=== PATIENT | male | born 1940 | race Caucasian/White ===

== ENCOUNTER → 2018-10-17 | Outpatient (CLI) | payer MEDICARE ==
[~2018-10-17] MED LIST: BAYER CHEWABLE81 MG PO; BENICAR20 MG PO; CARVEDILOL12.5 MG PO; COZAAR 25MG TAB25 M1 PO; CRESTOR20 MG PO; ISOSORBIDE DINI30 MG PO; LOSARTAN-HCTZ1 EAC2 PO; MINIPRIN81 MG PO; MUCINEX600 MG PO; NITROGLYCERIN0.4 MG SUBLING; POTASSIUM20 PO; PREDNISOLONE 5 M5 M1 PO; PREDNISONE 10 M10 M1 PO; PROTONIX40 M2 PO; VITAMIN D1000 UNI1 PO; ZPAK PO
== END ==
LOC: M.ULTRA 12:55
DX: I70.293 Other atherosclerosis of native arteries of extremities, bilateral legs (principal)

== ENCOUNTER 2019-02-28 18:20 | Inpatient (IN) | payer MEDICARE ==
[~2019-02-28] VITALS: Ht 180.3 cm; Wt 93.0 kg
[~2019-02-28 18:20] MED LIST changes: -CARVEDILOL12.5 MG PO; +COREG25 MG PO
[2019-02-28 18:27] VITALS: BP 112/43
[2019-02-28 18:59] LABS: ABSOLUTE LYMPHOCYTES 0.8 thou/uL (0.8-5.3); ABSOLUTE MONOCYTES 0.6 thou/uL (0.0-1.2); ABSOLUTE NEUTROPHILS 5.4 thou/uL (1.6-8.1); BASOPHILS 0.5 %; EOSINOPHILS 0.7 %; HEMATOCRIT 33.8 % (42.0-52.0); HEMOGLOBIN 10.8 gm/dL (14.0-18.0); LYMPHOCYTES 11.6 %; MCHC 31.9 g/dL (28.0-37.0); MCV 90.9 fL (80.0-100.0); MPV 9.4 fl. (7.2-11.1); NUCLEATED RBCS 0 /100WBC; PLATELET COUNT* 400 thou/uL (150-400); POLYS 79.2 %; RBC 3.72 mil/uL (4.50-6.00); RDW-CV 14.7 % (10.5-14.5); WBC 6.9 thou/uL (4.0-11.0)
[2019-02-28 19:07] LABS: ANION GAP 6 mmol/L (7-16); BUN 45 mg/dL (7-18); CHLORIDE 110 mmol/L (98-107); CO2 29 mmol/L (21-32); GLUCOSE 124 mg/dL (70-99); POTASSIUM 4.7 mmol/L (3.5-5.1); SODIUM 145 mmol/L (136-145)
[2019-02-28 19:18] LABS: ALBUMIN 1.9 g/dL (3.4-5.0); ALKALINE PHOSPHATASE 171 U/L (46-116); LIPASE 594 U/L (73-393); NT-PRO BRAIN NAT PEPTIDE 411 pg/mL (<300); SGOT 60 U/L (15-37); SGPT 110 U/L (30-65); TOTAL BILIRUBIN 0.3 mg/dL (<0.1-1.0); TOTAL PROTEIN 7.2 g/dL (6.4-8.2); TROPONIN-I LEVEL <0.06 ng/mL (<0.06)
[2019-03-01] VITALS (7 sets, daily range): BP systolic 117–139; BP diastolic 49–63
--- NOTE | 2019-03-01 09:43 | EKG ---
[place] [address] ELECTROCARDIOGRAM REPORT Name: PAYTON CHIRINOS Room: [place] [address] ADM IN [facility].#: [id number] Admission: 02/28/19 Attend Phys: Treasure Fields MD Discharge: Date of : 40 Report #: [id number] THIS REPORT FOR: //name// 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
[2019-03-01 11:42] LABS: CREATININE 1.9 mg/dL (0.6-1.3); MAGNESIUM 2.4 mg/dL (1.8-2.4); POTASSIUM 5.1 mmol/L (3.5-5.1)
[2019-03-02 02:05] LABS: HEPATITIS B SURFACE AG Negative (Negative)
[2019-03-02 04:12] LABS: HEMATOCRIT 32.6 % (42.0-52.0); HEMOGLOBIN 9.9 gm/dL (14.0-18.0); MCH 28.6 pg (26.0-34.0); MCHC 30.4 g/dL (28.0-37.0); MCV 94.1 fL (80.0-100.0); MPV 9.9 fl. (7.2-11.1); RBC 3.46 mil/uL (4.50-6.00); RDW-CV 15.5 % (10.5-14.5); WBC 6.9 thou/uL (4.0-11.0)
[2019-03-02 04:32] LABS: CALCIUM 8.1 mg/dL (8.5-10.1); CREATININE 1.8 mg/dL (0.6-1.3); MAGNESIUM 2.3 mg/dL (1.8-2.4)
[2019-03-02 04:54] LABS: POTASSIUM 6.3 mmol/L (3.5-5.1)
[2019-03-02 07:30] VITALS: BP 129/57
[2019-03-02 11:40] VITALS: BP 126/54
[2019-03-02 12:18] LABS: CALCIUM 8.3 mg/dL (8.5-10.1); CREATININE 1.8 mg/dL (0.6-1.3)
[2019-03-02 12:19] LABS: POTASSIUM 5.3 mmol/L (3.5-5.1)
[2019-03-02 16:19] VITALS: BP 110/51
[2019-03-02 20:00] VITALS: BP 117/49
[2019-03-03] VITALS: BP 115/47
[2019-03-03 04:00] VITALS: BP 121/60
[2019-03-03 05:07] LABS: HEMATOCRIT 29.2 % (42.0-52.0); MCH 28.4 pg (26.0-34.0); MCHC 30.8 g/dL (28.0-37.0); MCV 92.3 fL (80.0-100.0); MPV 9.7 fl. (7.2-11.1); RBC 3.16 mil/uL (4.50-6.00); RDW-CV 14.9 % (10.5-14.5)
[2019-03-03 05:26] LABS: CALCIUM 7.7 mg/dL (8.5-10.1); CREATININE 1.8 mg/dL (0.6-1.3); MAGNESIUM 2.1 mg/dL (1.8-2.4)
[2019-03-03 07:15] LABS: URINE BILIRUBIN NEGATIVE (Negative); URINE BLOOD NEGATIVE (Negative); URINE CLARITY CLEAR; URINE COLOR YELLOW; URINE GLUCOSE-RANDOM NEGATIVE (Negative); URINE KETONES NEGATIVE (Negative); URINE LEUKOCYTES-REFLEX NEGATIVE (Negative); URINE NITRITE-REFLEX NEGATIVE (Negative); URINE PROTEIN TRACE (Negative); URINE SPECIFIC GRAVITY 1.025 (1.005-1.030); URINE UROBILINOGEN 0.2 E.U./dl (0.2-1.0)
[2019-03-03 07:20] LABS: AMP/METHAMP Negative (Negative); BARBITURATES Negative (Negative); BENZODIAZEPINES Negative (Negative); COCAINE Negative (Negative); METHADONE Negative (Negative); OPIATES Negative (Negative); PCP Negative (Negative); THC Negative (Negative)
[2019-03-03 08:00] VITALS: BP 128/55
[2019-03-03 16:00] VITALS: BP 96/49
[2019-03-04 04:00] VITALS: BP 174/57
[2019-03-04 04:43] LABS: CALCIUM 8.2 mg/dL (8.5-10.1); CREATININE 2.1 mg/dL (0.6-1.3); MAGNESIUM 1.9 mg/dL (1.8-2.4)
[2019-03-04 08:00] VITALS: BP 111/53
[2019-03-04] MEDS ORDERED: MUCINEX600 MG PO (10:00)
[2019-03-04] MEDS ORDERED: ADVAIR HFA 230M12 GM INH (10:00)
[2019-03-04] MEDS ORDERED: ASPIR 8181 MG PO (10:00)
[2019-03-04] MEDS ORDERED: VENTOLIN HFA 1818 GM INH (10:00)
[2019-03-04] MEDS ORDERED: PREDNISONE 10 M10 MG PO (10:00)
[2019-03-04] MEDS ORDERED: ERGOCALCIF50000 UNIT PO (10:05)
[2019-03-04] MEDS ORDERED: CALCIUM 600 +1 EAC1 PO (10:05)
[2019-03-04 11:35] VITALS: BP 111/53
[2019-03-04 13:18] VITALS: BP 111/53
--- NOTE | 2019-03-04 14:40 | EKG ---
[place] [address] ELECTROCARDIOGRAM REPORT Name: PAYTON CHIRINOS Room: [address] ADM IN M.R.#: [id number] Admission: 02/28/19 Attend Phys: Treasure Fields MD Discharge: Date of : 40 Report #: [id number] THIS REPORT FOR: //name// [facility] Test Date: 2019-03-02 Test Time: 08:18:53 Pat Name: PAYTON CHIRINOS Department: Room: [facility] Gender: M Training Development Manager: : 1940 Requested By: Jona Hinds Order Number: [id number] MD: Martin Mcgovern Measurements Intervals [place] Rate: 78 P: 68 [place]: 180 QRS: 37 QRSD: 75 T: 50 QT: 362 QTc: 413 Interpretive Statements Sinus rhythm Anteroseptal infarct, age indeterminate Baseline wander in lead(s) V3 Compared to ECG 02/28/2019 18:41:17 No significant changes Electronically Signed On 03-04-2019 14:40:47 CDT by Martin Mcgovern [email or web address] <ELECTRONICALLY SIGNED> By: Martin Mcgovern MD, [facility] 03/04/19 1440 7 7 Martin Mcgovern MD, [facility] /EPI
== END 2019-03-04 14:51 | disposition home health service (06) | DRG 190 ==
LOC: M.ERS 18:20 → M.ORTHSURG 21:43 → M.TBA-ER 21:43 → M.ORTHSURG 03-01 12:51 → M.2W 03-02 11:29
PROVIDERS: Internal Medicine; Nurse Practitioner Family; ADMIT Internal Medicine
DX: J44.1 Chronic obstructive pulmonary disease with (acute) exacerbation (principal); E43 Unspecified severe protein-calorie malnutrition; I27.20 Pulmonary hypertension, unspecified; I25.10 Atherosclerotic heart disease of native coronary artery without angina pectoris; N18.3 Chronic kidney disease, stage 3 (moderate); I12.9 Hypertensive chronic kidney disease with stage 1 through stage 4 chronic kidney disease, or unspecified chronic kidney disease; M62.84 Sarcopenia; E78.5 Hyperlipidemia, unspecified; K80.20 Calculus of gallbladder without cholecystitis without obstruction; E87.5 Hyperkalemia; D63.8 Anemia in other chronic diseases classified elsewhere; E11.51 Type 2 diabetes mellitus with diabetic peripheral angiopathy without gangrene; E55.9 Vitamin D deficiency, unspecified; E07.89 Other specified disorders of thyroid; E11.22 Type 2 diabetes mellitus with diabetic chronic kidney disease; I25.2 Old myocardial infarction; Z87.891 Personal history of nicotine dependence; Z68.28 Body mass index [BMI] 28.0-28.9, adult; Z90.12 Acquired absence of left breast and nipple; Z90.49 Acquired absence of other specified parts of digestive tract; Z79.82 Long term (current) use of aspirin; Z79.899 Other long term (current) drug therapy; Z88.8 Allergy status to other drugs, medicaments and biological substances; Z83.3 Family history of diabetes mellitus

== ENCOUNTER 2019-03-08 12:07 | Inpatient (IN) | payer MEDICARE ==
[~2019-03-08] VITALS: Ht 180.3 cm; Wt 93.0 kg
--- NOTE | ~2019-03-08 | CON ---
[address] [address] CONSULTATION Name: PAYTON CHIRINOS Room: [address] IN .R.#: [id number] Admission: 03/08/19 Attend Phys: Jono Mcdowell MD Discharge: Date of : 40 Report #: [id number] THIS REPORT FOR: //name// CC: Jono Bullmoneyo Silva DATE OF SERVICE: 03/09/2019 REASON FOR CONSULTATION: Anemia. HISTORY OF PRESENT ILLNESS: This is a 78-year-old male with history of upper and lower endoscopy and blood transfusions 10 years ago. The patient also has had a capsule endoscopy at that time, but does not recall the result of it. He was admitted to hospital with respiratory failure and pneumonia. He is currently being treated for the same. The patient has a diagnosis of COPD and CHF for which he usually gets treated. He does not use home oxygen. Since hospitalization, he was found to have a low hemoglobin of 9. We were consulted to further evaluate his anemia. He denies any hematochezia or melena. Reports occasional gastroesophageal reflux symptoms. PAST MEDICAL HISTORY: Significant for history of COPD, peripheral vascular disease, CHF, anemia. ALLERGIES: No known drug allergy. MEDICATIONS: Please refer to MAR. SOCIAL HISTORY: The patient used to smoke, but denies tobaccoism. He also denies any alcohol use. He lives at home with his . FAMILY HISTORY: Significant for history of diabetes. PHYSICAL EXAMINATION: VITAL SIGNS: Reveals blood pressure of 83/41, respirations 17, pulse 81, temperature 97.6. LUNGS: Clear. CARDIOVASCULAR: Regular. ABDOMEN: Large, soft, nontender, nondistended. Bowel sounds are positive. NEUROLOGIC: The patient is alert and oriented x 3. Note, the patient is on 2 L of O2. LABORATORIES: Reveal sodium of 142, potassium 4.8, BUN is 34, creatinine 1.8, [place] [address] CONSULTATION Name: PAYTON CHIRINOS Room: [address] IN [facility]#: [id number] Admission: 03/08/19 Attend Phys: Jono Mcdowell MD Discharge: Date of : 40 Report #: [id number] glucose is 158, AST is 89, ALT is 186, alkaline phosphatase is 132, lipase is 594, total bilirubin 0.4, albumin is 2.5. WBC is 9.2 with hemoglobin of 9.8 and platelets of 282. IMAGING: CT of chest was obtained on admission. This is significant for emphysematous changes. There are scattered areas of infiltrate and a nodule, which is most likely inflammatory. ASSESSMENT AND PLAN: The patient with chronic obstructive pulmonary disease, who presents with exacerbation of chronic obstructive pulmonary disease and pneumonia. He is currently being treated for pneumonia. He is anemic. We will consider upper and lower endoscopy as he has not had any of these for the past 10 years. He also has mild elevation of his transaminases and his lipase is also mildly elevated. Since he does not have any clinical presentation of pancreatitis, we will continue monitoring numbers. If symptoms persist, we may consider CT of abdomen and pelvis. By: [id number] Arthur MD /nt
--- NOTE | ~2019-03-08 | PROC ---
[address] [address] PROCEDURE REPORT Name: PAYTON CHIRINOS Room: [address] IN M.R.#: [id number] Admission: 03/08/19 Attend Phys: Jono Mcdowell MD Discharge: 03/12/19 Date of : 40 Report #: [id number] THIS REPORT FOR: //name// For GI report, please see the Provation report in Perceptive 7 content. By: 1200Medical Records Staff JULIO CESAR /LUCI
[~2019-03-08 12:07] MED LIST changes: +ADVAIR HFA 230M12 GM INH; +ASPIR 8181 MG PO; +CALCIUM 600 +1 EAC1 PO; +ERGOCALCIF50000 UNIT PO; +PREDNISONE 10 M10 MG PO; +VENTOLIN HFA 1818 GM INH
[2019-03-08 12:08] VITALS: BP 114/38
[2019-03-08 12:40] LABS: HEMOGLOBIN 10.2 gm/dL (14.0-18.0); MCH 28.2 pg (26.0-34.0); MCHC 31.1 g/dL (28.0-37.0); MCV 90.8 fL (80.0-100.0); MPV 9.4 fl. (7.2-11.1); NUCLEATED RBCS 0 /100WBC; PLATELET COUNT* 301 thou/uL (150-400); RBC 3.63 mil/uL (4.50-6.00); RDW-CV 14.9 % (10.5-14.5); WBC 13.3 thou/uL (4.0-11.0)
[2019-03-08 12:48] LABS: ANION GAP 8 mmol/L (7-16); APTT 21.9 Seconds (25.0-31.3); BUN 34 mg/dL (7-18); CALCIUM 8.4 mg/dL (8.5-10.1); CHLORIDE 105 mmol/L (98-107); CO2 29 mmol/L (21-32); CREATININE 1.8 mg/dL (0.6-1.3); GLUCOSE 185 mg/dL (70-99); POTASSIUM 3.9 mmol/L (3.5-5.1); PROTIME 10.2 Seconds (9.20-11.50); SODIUM 142 mmol/L (136-145)
[2019-03-08 12:58] LABS: ALBUMIN 2.5 g/dL (3.4-5.0); ALKALINE PHOSPHATASE 132 U/L (46-116); NT-PRO BRAIN NAT PEPTIDE 584 pg/mL (<300); SGOT 89 U/L (15-37); SGPT 186 U/L (30-65); TOTAL BILIRUBIN 0.4 mg/dL (<0.1-1.0); TOTAL PROTEIN 6.6 g/dL (6.4-8.2); TROPONIN-I LEVEL <0.06 ng/mL (<0.06)
[2019-03-08 13:07] LABS: ABSOLUTE LYMPHOCYTES 1.1 thou/uL (0.8-5.3); ABSOLUTE MONOCYTES 0.1 thou/uL (0.0-1.2); ABSOLUTE NEUTROPHILS 12.1 thou/uL (1.6-8.1); PLATELET ESTIMATE ADEQUATE
[2019-03-08 15:55] VITALS: BP 126/55
[2019-03-08 16:30] VITALS: BP 124/42
--- NOTE | 2019-03-08 18:54 | NUR ---
ASSUMED PT CARE AT 1700, PT FROM ER. AOX4, O2 SAT 90'S 2L NC, SBA, USES WALKER. TRACING SR ON TELE. PT HAVE US DVT, CHEST XRAY. FOR ECHO. PT DENIES PAIN. IV ACCESS INTACT. VSS, ADMISSION DONE BY NEIL TURNER. I AGREE WITH HIS ASSESSMENT. HOURLY ROUNDING, CALL LIGHT WITHIN REACH. WILL CONTINUE TO MONITOR.
[2019-03-08 20:00] VITALS: BP 109/44
--- NOTE | 2019-03-08 22:50 | NUR ---
ASSUMED PT CARE AT 1930. ASSESSMENT COMPLETED CHARTED. ABLE TO MAKE NEEDS KNOWN. UP WITH SBA WITH WALKER. NO C/O PAIN OR DISCOMFORT. VSS. PT RESTING IN BED AT THIS TIME. WILL CONTINUE TO MONITOR.
[2019-03-09] VITALS: BP 125/52
[2019-03-09 03:58] VITALS: BP 152/76
[2019-03-09 04:37] LABS: ABSOLUTE BASOPHILS 0.1 thou/uL (0.0-0.2); ABSOLUTE LYMPHOCYTES 0.6 thou/uL (0.8-5.3); ABSOLUTE MONOCYTES 0.1 thou/uL (0.0-1.2); ABSOLUTE NEUTROPHILS 8.5 thou/uL (1.6-8.1); BASOPHILS 0.7 %; HEMATOCRIT 30.5 % (42.0-52.0); HEMOGLOBIN 9.8 gm/dL (14.0-18.0); LYMPHOCYTES 6.1 %; MCHC 32.1 g/dL (28.0-37.0); MCV 90.4 fL (80.0-100.0); MONOCYTES 1.2 %; MPV 9.2 fl. (7.2-11.1); NUCLEATED RBCS 0 /100WBC; PLATELET COUNT* 282 thou/uL (150-400); RBC 3.37 mil/uL (4.50-6.00); RDW-CV 14.5 % (10.5-14.5); WBC 9.2 thou/uL (4.0-11.0)
[2019-03-09 04:49] LABS: CREATININE 1.8 mg/dL (0.6-1.3); POTASSIUM 4.8 mmol/L (3.5-5.1)
[2019-03-09 08:00] VITALS: BP 130/67
[2019-03-09 11:22] VITALS: BP 83/41
[2019-03-09 15:22] VITALS: BP 101/48
--- NOTE | 2019-03-09 18:34 | NUR ---
PATINET RESTING IN BED. UP IN ROOM WITH WALKER AND IV ANTIBIOTICS. Aox4. stable gait. DENIES DIZZINESS. UNEVENTFUL DAY. HOURLY ROUNDING COMPOLETD FOR AATIENT SAFETY
[2019-03-09 20:00] VITALS: BP 104/47
[2019-03-10 00:13] VITALS: BP 126/67
[2019-03-10 03:56] LABS: ABSOLUTE LYMPHOCYTES 0.6 thou/uL (0.8-5.3); ABSOLUTE MONOCYTES 0.2 thou/uL (0.0-1.2); ABSOLUTE NEUTROPHILS 11.2 thou/uL (1.6-8.1); HEMATOCRIT 28.5 % (42.0-52.0); HEMOGLOBIN 9.2 gm/dL (14.0-18.0); LYMPHOCYTES 4.6 %; MCH 29.2 pg (26.0-34.0); MCHC 32.3 g/dL (28.0-37.0); MCV 90.7 fL (80.0-100.0); MONOCYTES 1.8 %; MPV 9.3 fl. (7.2-11.1); NUCLEATED RBCS 0 /100WBC; PLATELET COUNT* 283 thou/uL (150-400); POLYS 93.6 %; RBC 3.15 mil/uL (4.50-6.00); RDW-CV 14.8 % (10.5-14.5)
[2019-03-10 04:04] VITALS: BP 122/71
[2019-03-10 04:25] LABS: ALBUMIN 2.3 g/dL (3.4-5.0); CALCIUM 7.7 mg/dL (8.5-10.1); CREATININE 1.9 mg/dL (0.6-1.3); POTASSIUM 4.8 mmol/L (3.5-5.1); TOTAL BILIRUBIN 0.3 mg/dL (<0.1-1.0)
[2019-03-10 08:00] VITALS: BP 121/58
[2019-03-10 11:30] VITALS: BP 112/44
--- NOTE | 2019-03-10 12:18 | NUR ---
VSS, ASSUMED CARE IN THE AM, ASSESSEMT PERFORMED AND CHARTED, FALL PRECAUTIONS IN PLACE AND CALL LIGHT IN REACH, PT IS A&O4 AND UP WITH STAND BY WITH WALKER, PT IS ON 2L NC AND IS TRACING SR ON THE MONITOR, PT DENIES ANY PAIN AND HIS GOAL IS TO SIT UP IN CHAIR AND IMPROVE BREATHING, WILL FOLLOW WITH PLAN OF CARE AND HOURLY ROUNDS.
[2019-03-10 16:00] VITALS: BP 114/65
[2019-03-10 20:00] VITALS: BP 121/50
[2019-03-11] VITALS: BP 131/60
[2019-03-11 04:00] VITALS: BP 143/74
--- NOTE | 2019-03-11 05:05 | NUR ---
ASSUMED PT CARE APPROX 1930. PT IS AWAKE AND ORIENTED X4. VSS. PT TOLERATED ROOM AIR THE REST OF THE NIGHT, NO DESATURATIONS NOTED. OUTREACH REPRESENTATIVE IN PLACE, TRACING SR. PT DENIES PAIN/DISCOMFORT. PT IS ABLE TO SLEEP MOST OF THE NIGHT. CALL LIGHT WITHIN REACH. HOURLY ROUNDING DONE FOR PT SAFETY.
[2019-03-11 05:07] LABS: ABSOLUTE LYMPHOCYTES 1.1 thou/uL (0.8-5.3); ABSOLUTE MONOCYTES 0.5 thou/uL (0.0-1.2); ABSOLUTE NEUTROPHILS 8.6 thou/uL (1.6-8.1); BASOPHILS 0.1 %; HEMATOCRIT 28.7 % (42.0-52.0); HEMOGLOBIN 9.3 gm/dL (14.0-18.0); LYMPHOCYTES 10.4 %; MCH 29.6 pg (26.0-34.0); MCHC 32.6 g/dL (28.0-37.0); MCV 90.8 fL (80.0-100.0); MONOCYTES 5.4 %; MPV 9.4 fl. (7.2-11.1); NUCLEATED RBCS 0 /100WBC; PLATELET COUNT* 255 thou/uL (150-400); POLYS 84.1 %; RBC 3.16 mil/uL (4.50-6.00); RDW-CV 15.3 % (10.5-14.5); WBC 10.2 thou/uL (4.0-11.0)
[2019-03-11 05:18] LABS: ALBUMIN 2.3 g/dL (3.4-5.0); CALCIUM 7.7 mg/dL (8.5-10.1); CREATININE 2.1 mg/dL (0.6-1.3); TOTAL BILIRUBIN 0.3 mg/dL (<0.1-1.0); TOTAL PROTEIN 5.8 g/dL (6.4-8.2)
[2019-03-11 05:25] LABS: POTASSIUM 4.2 mmol/L (3.5-5.1)
[2019-03-11 08:00] VITALS: BP 143/70
--- NOTE | 2019-03-11 10:31 | NUR ---
ASSUMED CARE OF PATIENT THIS AM AT 0730. PATIENT IS ALERT AND ORIENTED X 4. HE DENIES PAIN AND DISCOMFORT. PATIENT IS UP WITH OT AND PT THIS AM. HE C/O WEAKNESS. TELE SHOWS NSR. HIS O2 SATS ARE 93 TO 94% ON ROOM AIR. PLANS TO TRANSFER TO REHAB TODAY. NO ORDERS AT THIS TIME. IV ANTIBIOTICS CONTINUED ORDERED. WILL CONTINUE TO MONITOR.
--- NOTE | 2019-03-11 10:38 | EKG ---
[place] [address] ELECTROCARDIOGRAM REPORT Name: PAYTON CHIRINOS Room: [address] ADM IN .R.#: [id number] Admission: 03/08/19 Attend Phys: Jono Mcdowell MD Discharge: Date of : 40 Report #: [id number] THIS REPORT FOR: //name// 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
--- NOTE | 2019-03-11 10:46 | NUR ---
Pt is A&O. Resides at home with his . Pt recently dc to home from this hospital with [facility] palliative care. Pt has a walker that he can use for mobility. Spoke with , recommending SNF at dc. Spoke with Pt, he is in agreement, Pt wants to stay close to home and wants referral sent to [facility]. Faxed referral. Awaiting decision to accept. Anticipate dc tomorrow. Following.
[2019-03-11 12:00] VITALS: BP 99/38
--- NOTE | 2019-03-11 12:43 | 2DMMODE ---
[place] [address] 2 D/M-MODE ECHOCARDIOGRAM Name: PAYTON CHIRINOS Room: [address] IN [facility]#: [id number] Admission: 03/08/19 Attend Phys: Jono Mcdowell, Discharge: Date of : 40 Date of Service: 03/11/19 1243 Report #: [id number] THIS REPORT FOR: //name// APPROVED REPORT Study performed: 03/11/2019 10:27:29 EXAM: Comprehensive 2D, Doppler, and color-flow Echocardiogram Patient Location: In-Patient Room #: [facility] BSA: 2.09 HR: 77 bpm BP: 143/74 mmHg Other Information Study Quality: Good Indications Dyspnea 2D Dimensions IVSd: 12.41 (7-11mm) LVOT Diam: 20.34 (18-24mm) LVDd: 35.89 mm PWd: 8.87 (7-11mm) Ascending Ao: 32.93 (22-36mm) LVDs: 22.49 (25-40mm) Aortic Root: 22.01 mm Volumes Left Atrial Volume (Systole) LA ESV Index: 17.40 mL/m2 Aortic Valve AoV Peak Eduardo.: 1.26 m/s AO Peak Gr.: 6.34 mmHg LVOT Max P.76 mmHg AO Mean Gr.: 3.56 mmHg LVOT Mean P.11 mmHg LVOT Max V: 1.09 m/s AO V2 VTI: 22.38 cm LVOT Mean V: 0.64 m/s ANNA (VTI): 3.14 cm2 LVOT V1 VTI: 21.60 cm Mitral Valve E/A Ratio: 0.79 MV Decel. Time: 261.06 ms MV E Max Eduardo.: 0.77 m/s MV PHT: 75.71 [place] [address] 2 D/M-MODE ECHOCARDIOGRAM Name: PAYTON CHIRINOS Room: [address] IN .R.#: [id number] Admission: 03/08/19 Attend Phys: Jono Mcdowell, Discharge: Date of : 40 Date of Service: 03/11/19 1243 Report #: [id number] MVA (PHT): 2.91 cm2 TDI E/Lateral E': 6.42 E/Medial E': 6.42 Medial E' Eduardo.: 0.12 m/s Lateral E' Eduardo.: 0.12 m/s Pulmonary Valve PV Peak Eduardo.: 0.98 m/s PV Peak Gr.: 3.82 mmHg Tricuspid Valve RAP Estimate: 5.00 mmHg TR Peak Gr.: 34.71 mmHg RVSP: 39.71 mmHg PA Pressure: 39.71 mmHg Left Ventricle The left ventricle is normal size. There is normal LV segmental wall motion. There is normal left ventricular wall thickness. Left ventricular systolic function is normal. The left ventricular ejection fraction is within the normal range. LVEF is 65-70%. Grade I - abnormal relaxation pattern. Right Ventricle The right ventricle is normal size. The right ventricular systolic function is normal. Atria The left atrium size is normal. The right atrium size is normal. Aortic Valve The Aortic valve is sclerotic. No aortic regurgitation is present. There is no aortic valvular stenosis. Mitral Valve The mitral valve is normal in structure. There is no mitral valve regurgitation noted. No evidence of mitral valve stenosis. Tricuspid Valve The tricuspid valve is normal in structure. Mild tricuspid regurgitation estimated pa pressure 40 mm Hg Pulmonic Valve Pulmonic valve is not well visualized. There is no pulmonic [place] [address] 2 D/M-MODE ECHOCARDIOGRAM Name: TARANPAYTON Elmore Trina Room: [address] IN [facility]#: [id number] Admission: 03/08/19 Attend Phys: Jono Mcdowell, Discharge: Date of : 40 Date of Service: 03/11/19 1243 Report #: [id number] Great Vessels The aortic root is normal in size. IVC is normal in size and collapses >50% with inspiration. Pericardium There is no pericardial effusion. <Conclusion> LVEF is 65-70%. The Aortic valve is sclerotic. Mild tricuspid regurgitation estimated pa pressure 40 mm Hg <ELECTRONICALLY SIGNED> By: Louis Baez MD, [facility] 03/11/19 1243 1243 1243 Louis Baez MD, FAC /INF
[2019-03-11 16:00] VITALS: BP 121/50
[2019-03-11 20:00] VITALS: BP 140/62
[2019-03-12] VITALS: BP 130/73; BP 134/71
[2019-03-12 04:00] VITALS: BP 140/73
--- NOTE | 2019-03-12 04:51 | NUR ---
ASSUMED PT CARE APPROX 1930. PT IS AWAKE AND ORIENTED X4. VSS ON ROOM AIR, NO DESATURATIONS NOTED. CARDIAC MNITOR IN PLACE TRACING SR. ASSESSMENT DONE AND CHARTED. PT DENIES PAIN/DISCOMFORT. BOWEL PREP IN PROGRESS FOR EGD AND COLONOSCOPY ON 03/12/19. CALL LIGHT WITHIN REACH. HOURLY ROUNDING DONE FOR PT SAFETY.
[2019-03-12 08:00] VITALS: BP 157/65
--- NOTE | 2019-03-12 11:55 | NUR ---
Pt medically stable to dc to skilled today pending colon/EGD. Updated Lyn at [facility].
[2019-03-12] MEDS ORDERED: ADVAIR HFA 230M12 GM INH (15:21)
--- NOTE | 2019-03-12 15:25 | NUR ---
D/C PRODUCTION LAPPING MACHINE OPERATOR INFORMED THAT PATIENT IS READY TO D/C TO [facility]. D/C PRODUCTION LAPPING MACHINE OPERATOR SPOKE TO THE PATIENT AND HIS SPOUSE TO INFORM OF THIS AND BOTH ARE IN AGREEMENT. D/C PRODUCTION LAPPING MACHINE OPERATOR FAXED PATIENT'S D/C ORDERS TO [facility]. TRANSPORTATION ARRANGED FOR 1630. RN IN-CHARGE OF THE PATIENT INFORMED OF THE PATIENT'S TIME OF TRANSPORT AND WHERE TO CALL REPORT. RN IN AGREEMENT. CM WILL REMAIN AVAILABLE TO ASSIST AND FOLLOW NEEDED. [place] PHONE: [phone]
[2019-03-12] MEDS ORDERED: PROTONIX40 M1 PO ×2 (15:32→15:34)
[2019-03-12 15:36] VITALS: BP 127/52
[2019-03-12] MEDS ORDERED: PREDNISONE 10 M10 MG PO (16:18)
[2019-03-12] MEDS ORDERED: AUGMENTIN 875-1 EACH PO (16:19)
--- NOTE | 2019-03-12 16:45 | NUR ---
ASSUMED PT CARE AT 0700, PT A&O X4, VSS, COMMUNITY HEALTH DIRECTOR TRACING SINUS RHYTHM, UP WITH STANDBY AND WALKER. PT HAD EGD AND COLONOSCOPY THIS SHIFT WITH GOOD RESULTS, DISCHARGED TO [facility] FOR REHAB. EDUCATED ON ALL DISCHARGE INSTRUCTIONS INCLUDING MEDICATIONS AND FOLLOW UP APPTS, REMOVED IV AND COMMUNITY HEALTH DIRECTOR, HOURLY ROUNDING COMPLETED.
--- NOTE | 2019-03-13 16:07 | PATH ---
[facility] [address] [place] [address] PATHOLOGY RPT PROCEDURE Name: PAYTON CHIRINOS Room: [address] IN M.R.#: [id number] Admission: 03/08/19 Date of : 40 Discharge: 03/12/19 Report #: [id number] Path Case #: [id number] [facility] Accession Number: [id number] . 01 Material submitted: . duodenum - DUODENAL BIOPSIES FOR CELIAC . 01 Clinical history: . None provided . 02 Diagnosis: Duodenal biopsies (for celiac): - Normal small intestinal/duodenal mucosa. (PREMA:pit 03/13/2019) QTP/03/13/2019 . 02 Electronically signed: . Bud Perez MD, Pathologist NPI- [id number] . 01 Gross description: . Received in formalin labeled "[place], [place], duodenal biopsies for celiac," are 2 segments of [place] soft tissue measuring 0.5 x 0.2 x 0.1 cm in aggregate dimensions and ranging from 0.2 to 0.3 cm in maximum dimension. The specimen is submitted entirely in cassette A1. (TSD; 03/12/2019) TOB/TOB . 02 Pathologist provided ICD-10: I50.20 . 02 CPT . 026519 Specimen Comment: A courtesy copy of this report has been sent to Specimen Comment: [phone], , , . Specimen Comment: Report sent to ,DR ASHRAF,DR GOSS / DR ESPARZA Performed at: [address], [place] [id number] MD Emory Cohen MD Phone: [phone] Performed at: 02 [facility] [address], [place], [place] [id number] MD Bud Perez MD Phone: [phone]
== END 2019-03-12 16:35 | DRG 177 ==
LOC: M.ERS 12:07 → M.TBA-ER 13:52 → M.2W 13:52
PROVIDERS: Emergency Medicine Emergency Medical Services; ADMIT Internal Medicine
PROC: 0DJD8ZZ Inspection of Lower Intestinal Tract, Via Natural or Artificial Opening Endoscopic (ICD-10-PCS; principal; 2019-03-12)
PROC: 0DB98ZX Excision of Duodenum, Via Natural or Artificial Opening Endoscopic, Diagnostic (ICD-10-PCS; principal; 2019-03-12)
DX: J15.6 Pneumonia due to other Gram-negative bacteria (principal); J96.01 Acute respiratory failure with hypoxia; J44.0 Chronic obstructive pulmonary disease with (acute) lower respiratory infection; I13.0 Hypertensive heart and chronic kidney disease with heart failure and stage 1 through stage 4 chronic kidney disease, or unspecified chronic kidney disease; N17.9 Acute kidney failure, unspecified; I50.32 Chronic diastolic (congestive) heart failure; D63.8 Anemia in other chronic diseases classified elsewhere; I27.20 Pulmonary hypertension, unspecified; E11.22 Type 2 diabetes mellitus with diabetic chronic kidney disease; E11.51 Type 2 diabetes mellitus with diabetic peripheral angiopathy without gangrene; N18.3 Chronic kidney disease, stage 3 (moderate); E78.5 Hyperlipidemia, unspecified; D50.9 Iron deficiency anemia, unspecified; I25.10 Atherosclerotic heart disease of native coronary artery without angina pectoris; K64.9 Unspecified hemorrhoids; K55.20 Angiodysplasia of colon without hemorrhage; Z90.12 Acquired absence of left breast and nipple; Z90.49 Acquired absence of other specified parts of digestive tract; Z79.899 Other long term (current) drug therapy; Z79.82 Long term (current) use of aspirin; Z87.891 Personal history of nicotine dependence; I25.2 Old myocardial infarction

== ENCOUNTER 2019-03-27 09:18 | Emergency (ER) | payer MEDICARE ==
[~2019-03-27] VITALS: Ht 180.3 cm; Wt 88.0 kg
[~2019-03-27 09:18] MED LIST changes: +AUGMENTIN 875-1 EACH PO; +PROTONIX40 M1 PO
[2019-03-27 09:45] LABS: ABSOLUTE EOSINOPHILS 0.1 thou/uL (0.0-0.7); ABSOLUTE LYMPHOCYTES 0.7 thou/uL (0.8-5.3); ABSOLUTE MONOCYTES 0.6 thou/uL (0.0-1.2); ABSOLUTE NEUTROPHILS 6.5 thou/uL (1.6-8.1); BASOPHILS 0.6 %; EOSINOPHILS 0.7 %; HEMATOCRIT 31.7 % (42.0-52.0); HEMOGLOBIN 10.2 gm/dL (14.0-18.0); LYMPHOCYTES 9.3 %; MCH 29.6 pg (26.0-34.0); MCHC 32.2 g/dL (28.0-37.0); MCV 91.8 fL (80.0-100.0); MONOCYTES 7.3 %; MPV 8.8 fl. (7.2-11.1); NUCLEATED RBCS 0 /100WBC; PLATELET COUNT* 130 thou/uL (150-400); POLYS 82.1 %; RBC 3.45 mil/uL (4.50-6.00); RDW-CV 16.9 % (10.5-14.5)
[2019-03-27 09:50] LABS: ANION GAP 10 mmol/L (7-16); BUN 21 mg/dL (7-18); CALCIUM 8.4 mg/dL (8.5-10.1); CHLORIDE 104 mmol/L (98-107); CO2 26 mmol/L (21-32); CREATININE 1.8 mg/dL (0.6-1.3); GLUCOSE 136 mg/dL (70-99); POTASSIUM 3.7 mmol/L (3.5-5.1); SODIUM 140 mmol/L (136-145)
[2019-03-27 10:01] LABS: ALBUMIN 2.9 g/dL (3.4-5.0); ALKALINE PHOSPHATASE 75 U/L (46-116); LIPASE 180 U/L (73-393); NT-PRO BRAIN NAT PEPTIDE 1118 pg/mL (<300); SGOT 17 U/L (15-37); SGPT 51 U/L (30-65); TOTAL BILIRUBIN 0.6 mg/dL (<0.1-1.0); TOTAL PROTEIN 6.6 g/dL (6.4-8.2); TROPONIN-I LEVEL <0.06 ng/mL (<0.06)
[2019-03-27 10:29] LABS: PROTIME 10.7 Seconds (9.20-11.50)
[2019-03-27 11:29] VITALS: BP 126/46
--- NOTE | 2019-03-27 15:17 | EKG ---
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: : 1940 Requested By: Nj Myers Order Number: [id number] MD: Louis Baez Measurements Intervals [place] Rate: 74 P: 76 [place]: 167 QRS: 65 QRSD: 78 T: 72 QT: 357 QTc: 396 Interpretive Statements Sinus rhythm Probable left atrial enlargement Anteroseptal infarct, age indeterminate Compared to ECG 03/08/2019 12:14:11 No significant changes Electronically Signed On 03-27-2019 15:17:14 CDT by Louis Baez [email or web address] <ELECTRONICALLY SIGNED> By: Louis Baez MD, [facility] 03/27/19 1517 5 5 Louis Baez MD, [facility] /EPI
== END 2019-03-27 11:31 | disposition home or self-care (01) ==
LOC: M.ERS 09:18
PROVIDERS: Emergency Medicine
DX: R55 Syncope and collapse (principal); I95.9 Hypotension, unspecified; J44.9 Chronic obstructive pulmonary disease, unspecified; I12.9 Hypertensive chronic kidney disease with stage 1 through stage 4 chronic kidney disease, or unspecified chronic kidney disease; E11.22 Type 2 diabetes mellitus with diabetic chronic kidney disease; N18.3 Chronic kidney disease, stage 3 (moderate); Z79.82 Long term (current) use of aspirin; Z79.899 Other long term (current) drug therapy

== ENCOUNTER → 2019-04-12 | Outpatient (CLI) | payer MEDICARE ==
[2019-04-12 14:41] LABS: CALCIUM 8.8 mg/dL (8.5-10.1); CREATININE 1.5 mg/dL (0.6-1.3); POTASSIUM 4.3 mmol/L (3.5-5.1)
== END ==
LOC: M.LAB 14:13
PROVIDERS: Surgery Vascular Surgery
DX: I12.9 Hypertensive chronic kidney disease with stage 1 through stage 4 chronic kidney disease, or unspecified chronic kidney disease (principal); N18.3 Chronic kidney disease, stage 3 (moderate); E11.22 Type 2 diabetes mellitus with diabetic chronic kidney disease; I25.10 Atherosclerotic heart disease of native coronary artery without angina pectoris; I25.2 Old myocardial infarction

== ENCOUNTER → 2019-04-24 | Outpatient (CLI) | payer MEDICARE ==
--- NOTE | 2019-04-24 14:14 | NUR ---
ARRIVED PER WHEELCHAIR. TRANSFERED SELF TO RECLINER. IV STARTED WTIH OUT DIFFICULTY. HISTORY AND MED LIST OBTAINED. HYDRATION PROTOCOL COMPLETED AND TOLERATED WELL. DENIES QUESTIONS OR NEEDS AT DISCHARGE.
== END ==
LOC: M.INFUS 04-18 12:48
DX: I70.213 Atherosclerosis of native arteries of extremities with intermittent claudication, bilateral legs (principal)

== ENCOUNTER → 2019-10-02 | Outpatient (CLI) | payer MEDICARE | LOC: M.ULTRA 13:49 | DX: I65.23 Occlusion and stenosis of bilateral carotid arteries (principal) ==